=== PATIENT | male | born 1955 | race Caucasian/White ===

== ENCOUNTER 2024-03-25 00:10 | Emergency (ER) | payer BC ==
[~2024-03-25] VITALS: Ht 175.3 cm; Wt 70.3 kg
[2024-03-25 00:20] VITALS: BP_SYST 135; PULSE 66; RESP 13; TEMP 97; O2SAT 97
[2024-03-25 01:06] LABS: BASOPHILS % (AUTO) 0.7 % (0.0-2.0); EOSINOPHILS # (AUTO) 0.1 K/uL (0.0-0.4); EOSINOPHILS % (AUTO) 2.6 % (0.0-4.0); HEMATOCRIT 42.5 % (36-54); LYMPHOCYTES # (AUTO) 1.2 K/uL (1.0-5.5); LYMPHOCYTES % (AUTO) 24.8 % (20.5-51.5); MEAN CORPUSCULAR HEMOGLOBIN 33 pg (27-31); MEAN CORPUSCULAR HGB CONC 35 % (32-36); MEAN CORPUSCULAR VOLUME 92 fL (79.0-98.0); MONOCYTES # (AUTO) 0.5 K/uL (0.0-1.0); MONOCYTES % (AUTO) 9.9 % (1.7-9.3); NEUTROPHILS # (AUTO) 3.1 K/uL (1.8-7.7); PLATELET COUNT (AUTO) 192 K/uL (130-430); RED BLOOD CELL COUNT(AUTO) 4.62 MIL/uL (4.2-6.2); RED CELL DISTRIBUTION WIDTH 13.1 % (9.0-15.0); WHITE BLOOD COUNT (AUTO) 4.9 K/uL (4.8-10.8)
[2024-03-25 01:28] LABS: ANION GAP 8 (5-15); CALCIUM 8.8 mg/dL (8.4-11.0); CARBON DIOXIDE 28 mmol/L (23-29); CHLORIDE 104 mmol/L (98-107); GFR AFRICAN AMERICAN 145 mL/min (>90); GFR NON AFRICAN-AMERICAN 120 mL/min (>90); GLUCOSE 87 mg/dL (74-106); SODIUM SERUM 140 mmol/L (136-145); UREA NITROGEN, BLOOD 14 mg/dL (8-21)
[2024-03-25 01:39] LABS: POTASSIUM 3.7 mmol/L (3.5-5.1)
[2024-03-25] MEDS: ACETAMINOPHEN 500 MG TABLET PO ONE (02:16)
[2024-03-25 02:25] VITALS: BP_SYST 151; PULSE 64; RESP 16; TEMP 98; O2SAT 96
== END 2024-03-25 02:25 | disposition home or self-care (01) ==
LOC: SED 00:10
DX: R07.89 Other chest pain (principal); R51.9 Headache, unspecified; R03.0 Elevated blood-pressure reading, without diagnosis of hypertension
CPT/HCPCS: 36415; 71045; 80048; 84484; 85025; 85379; 93005; 99285

== ENCOUNTER 2024-04-09 18:16 | Emergency (ER) | payer BC ==
[~2024-04-09] VITALS: Ht 175.3 cm; Wt 70.3 kg
[2024-04-09 18:19] VITALS: BP_SYST 146; PULSE 53; RESP 18; TEMP 97.3; O2SAT 95
[2024-04-09 19:10] LABS: EOSINOPHILS # (AUTO) 0.1 K/uL (0.0-0.4); LYMPHOCYTES # (AUTO) 0.7 K/uL (1.0-5.5); MEAN CORPUSCULAR HEMOGLOBIN 32 pg (27-31); MEAN CORPUSCULAR VOLUME 93 fL (79.0-98.0); NEUTROPHILS # (AUTO) 6.5 K/uL (1.8-7.7); WHITE BLOOD COUNT (AUTO) 7.7 K/uL (4.8-10.8)
[2024-04-09 19:16] LABS: BASOPHILS % (AUTO) 0.4 % (0.0-2.0); EOSINOPHILS % (AUTO) 0.8 % (0.0-4.0); HEMATOCRIT 43.2 % (36-54); HEMOGLOBIN 14.9 g/dL (14.0-18.0); LYMPHOCYTES % (AUTO) 9.8 % (20.5-51.5); MEAN CORPUSCULAR HGB CONC 35 % (32-36); MONOCYTES # (AUTO) 0.4 K/uL (0.0-1.0); MONOCYTES % (AUTO) 4.9 % (1.7-9.3); NEUTROPHILS % (AUTO) 84.1 % (40.0-70.0); PLATELET COUNT (AUTO) 176 K/uL (130-430); RED BLOOD CELL COUNT(AUTO) 4.65 MIL/uL (4.2-6.2)
[2024-04-09 19:31] LABS: ANION GAP 8 (5-15); CALCIUM 8.8 mg/dL (8.4-11.0); CARBON DIOXIDE 28 mmol/L (23-29); CHLORIDE 103 mmol/L (98-107); CREATININE 0.74 mg/dL (0.55-1.30); GFR AFRICAN AMERICAN 136 mL/min (>90); GFR NON AFRICAN-AMERICAN 112 mL/min (>90); GLUCOSE 119 mg/dL (74-106); POTASSIUM 3.6 mmol/L (3.5-5.1); SODIUM SERUM 139 mmol/L (136-145); UREA NITROGEN, BLOOD 10 mg/dL (8-21)
[2024-04-09] MEDS: METOCLOPRAMIDE HCL 10 MG/2 ML VIAL IVP ONE (20:51)
[2024-04-09] MEDS: DIPHENHYDRAMINE INJ 50 MG/ML VIAL IVP ONE (20:52)
[2024-04-09 21:27] LABS: TOTAL BILIRUBIN 1.5 mg/dL (0.0-1.0)
[2024-04-09 21:28] LABS: ALBUMIN 3.6 g/dL (3.4-4.8); TOTAL PROTEIN, SERUM 6.7 g/dL (6.4-8.3)
[2024-04-09 21:29] LABS: BILIRUBIN,DIRECT 0.3 mg/dL (0.0-0.3)
[2024-04-09] MEDS ORDERED: METO-290 PO (22:19)
[2024-04-09] MEDS ORDERED: P-EP-92 PO (22:19)
[2024-04-09] MEDS ORDERED: AUG875 PO (22:19)
[2024-04-09] MEDS: AMOXICILLIN/POTASSIUM CLAV 875 MG TABLET PO ONE (22:52)
[2024-04-09 22:55] VITALS: BP_SYST 123; PULSE 62; RESP 18; TEMP 97.7; O2SAT 97
== END 2024-04-09 22:55 | disposition home or self-care (01) ==
LOC: SED 18:16
DX: R07.9 Chest pain, unspecified (principal); R42 Dizziness and giddiness; H66.91 Otitis media, unspecified, right ear
CPT/HCPCS: 99285; 96374; 70450; 71045; 96375; 80076; 80048; 83880; 83690; 85025; 85379; 84484; 36415; J1200; J2765; 93005